=== PATIENT | female | born 1985 | race Caucasian/White ===

== ENCOUNTER 2020-10-04 19:24 | Inpatient (IN) | payer BC ==
[~2020-10-04 19:24] MED LIST: Iopamidol-370 76% 500 ML 1 ML ONE
[2020-10-04 20:28] LABS: Hemoglobin 11.9 g/dL (12.0-16.0); Mean Corpuscular HGB CONC 32.7 g/dL (32.0-36.0); Mean Corpuscular Hemoglobin 29.2 pg (27.0-31.0); Mean Corpuscular Volume 89.2 fL (78.0-98.0); Mean Platelet Volume 6.7 fL (7.4-10.4); Platelet Count 252 thou/uL (130-400); RBC Distribution Width 11.5 % (11.5-14.5); Red Blood Cell (RBC) Count 4.06 mill/uL (4.20-5.40)
[2020-10-04 20:47] LABS: ALT (SGPT) 10 U/L (8-55); AST (SGOT) 10 U/L (5-34); Albumin 3.7 g/dL (3.5-5.0); Alkaline Phosphatase 70 U/L (40-110); Anion Gap 14 mmol/L (10-20); BUN (Urea Nitrogen) 7 mg/dL (7.0-18.7); Bilirubin, Total 0.7 mg/dL (0.2-1.2); Calc. Creatinine Clearance 0 mL/min (70-130); Calcium 9.1 mg/dL (7.8-10.44); Carbon Dioxide 25 mmol/L (22-29); Chloride 101 mmol/L (98-107); Globulin 3.6 g/dL (2.4-3.5); Glucose 111 mg/dL (70-105); Potassium 3.7 mmol/L (3.5-5.1); Protein, Total 7.3 g/dL (6.0-8.3); Sodium 136 mmol/L (136-145)
[2020-10-04] MEDS ORDERED: Morphine 4 MG/ML VIAL ONE (20:49)
[2020-10-04] MEDS ORDERED: Ondansetron PF 4 MG/2 ML Vial ONE (20:49)
[2020-10-04 20:51] LABS: Band 26 % (5-11); Lymphocytes 8 % (21-51); MDiff Complete? YES; Monocytes 4 % (0-10); Neutrophil 62 % (42-75)
[2020-10-04] MEDS ORDERED: Cefepime 2 GM VIAL ONE (21:14)
[2020-10-04] MEDS ORDERED: HYDROmorphone 0.5 MG/0.5 ML SYRINGE ONE (21:14)
[2020-10-04] MEDS ORDERED: Vancomycin 1 GM/200 ML BAG ONE (23:07)
[2020-10-05 00:29] LABS: SARS-CoV-2 NAA Rapid Test Not Detected (NotDetected)
[2020-10-05] MEDS ORDERED: Ondansetron PF 4 MG/2 ML Vial IVP PRN (01:30)
[2020-10-05] MEDS ORDERED: Ondansetron ODT 4 MG TAB SL PRN (01:30)
[2020-10-05 01:47] VITALS: BMI 27.2
[2020-10-05] MEDS: Morphine 4 MG/ML VIAL SLOW IVP PRN ×3 (01:54→09:15)
[2020-10-05] MEDS: Acetaminophen 325 MG TAB PO PRN ×2 (01:57→05:34)
[2020-10-05] MEDS ORDERED: Zolpidem Tartrate 5 MG TAB PO SCH (02:45)
[2020-10-05 05:57] LABS: #Lymphocytes 1.5 thou/uL (1.20-3.40); #Monocytes 1.5 thou/uL (0.11-0.59); #Neutrophils 11.6 thou/uL (1.40-6.50); %Basophils 0.1 % (0.0-1.0); %Eosinophils 0.2 % (0.0-10.0); %Lymphocytes 10.3 % (21.0-51.0); %Monocytes 10.4 % (0.0-10.0); %Neutrophils 78.9 % (42.0-75.0); Hemoglobin 10.9 g/dL (12.0-16.0); Mean Corpuscular Hemoglobin 28.5 pg (27.0-31.0); Mean Corpuscular Volume 89.1 fL (78.0-98.0); Platelet Count 226 thou/uL (130-400); RBC Distribution Width 11.4 % (11.5-14.5); Red Blood Cell (RBC) Count 3.84 mill/uL (4.20-5.40); White Blood Cell (WBC) Count 14.6 thou/uL (4.8-10.8)
[2020-10-05 06:06] LABS: Anion Gap 13 mmol/L (10-20); BUN (Urea Nitrogen) 6 mg/dL (7.0-18.7); Calc. Creatinine Clearance 126 mL/min (70-130); Calcium 8.6 mg/dL (7.8-10.44); Carbon Dioxide 23 mmol/L (22-29); Chloride 99 mmol/L (98-107); Glucose 106 mg/dL (70-105); Potassium 3.6 mmol/L (3.5-5.1); Sodium 131 mmol/L (136-145)
[2020-10-05] MEDS: Vancomycin HCl 1.25 GM in Sodium Chloride 0.9% 250 ML 250 ML IVPB SCH ×2 (08:13→21:03)
[2020-10-05] MEDS ORDERED: HYDROcodone/Acetaminophen 5/325 mg Tablet PO PRN (10:57)
[2020-10-05] MEDS: HYDROcodone/Acetaminophen 5/325 mg Tablet PO PRN ×4 (11:19→23:55)
[2020-10-05] MEDS: traMADol HCl 50 MG TAB PO PRN (18:19)
[2020-10-05] MEDS: Senokot S 8.6-50 MG TAB PO SCH (20:05)
[2020-10-05] MEDS: Methocarbamol 500 MG TAB PO PRN (21:04)
[2020-10-05] MEDS: Ketorolac Tromethamine 30 MG/ML VIAL IVP PRN (23:55)
[2020-10-06] MEDS: HYDROcodone/Acetaminophen 5/325 mg Tablet PO PRN ×4 (05:53→21:00)
[2020-10-06] MEDS: Ketorolac Tromethamine 30 MG/ML VIAL IVP PRN ×3 (05:54→23:08)
[2020-10-06 06:21] LABS: #Eosinphils 0.1 thou/uL (0.0-0.7); #Lymphocytes 1.3 thou/uL (1.20-3.40); #Monocytes 0.9 thou/uL (0.11-0.59); %Basophils 0.3 % (0.0-1.0); %Eosinophils 1.4 % (0.0-10.0); %Lymphocytes 18.2 % (21.0-51.0); %Monocytes 12.7 % (0.0-10.0); %Neutrophils 67.5 % (42.0-75.0); Hemoglobin 10.3 g/dL (12.0-16.0); Mean Corpuscular HGB CONC 31.5 g/dL (32.0-36.0); Mean Corpuscular Volume 89.1 fL (78.0-98.0); Platelet Count 196 thou/uL (130-400); RBC Distribution Width 11.4 % (11.5-14.5); Red Blood Cell (RBC) Count 3.67 mill/uL (4.20-5.40); White Blood Cell (WBC) Count 7.3 thou/uL (4.8-10.8)
[2020-10-06 06:49] LABS: Anion Gap 13 mmol/L (10-20); Calc. Creatinine Clearance 142 mL/min (70-130); Calcium 8.5 mg/dL (7.8-10.44); Carbon Dioxide 25 mmol/L (22-29); Chloride 103 mmol/L (98-107); Glucose 103 mg/dL (70-105); Potassium 3.5 mmol/L (3.5-5.1); Sodium 137 mmol/L (136-145)
[2020-10-06 06:55] LABS: BUN (Urea Nitrogen) 11 mg/dL (7.0-18.7)
[2020-10-06 08:12] LABS: Vancomycin, Trough 8.6 ug/mL
[2020-10-06] MEDS: Enoxaparin Sodium 40 MG/0.4 ML SYRINGE SC SCH (08:39)
[2020-10-06] MEDS: Senokot S 8.6-50 MG TAB PO SCH ×2 (08:39→21:00)
[2020-10-06] MEDS: Methocarbamol 500 MG TAB PO PRN ×2 (08:40→18:33)
[2020-10-06] MEDS: Vancomycin HCl 1.25 GM in Sodium Chloride 0.9% 250 ML 250 ML IVPB SCH ×2 (09:07→21:00)
[2020-10-06] MEDS: traMADol HCl 50 MG TAB PO PRN ×2 (13:43→23:08)
[2020-10-06] MEDS: Zolpidem Tartrate 5 MG TAB PO PRN (21:00)
[2020-10-07] MEDS: HYDROcodone/Acetaminophen 5/325 mg Tablet PO PRN ×6 (00:35→23:29)
[2020-10-07] MEDS: Vancomycin HCl 1.25 GM in Sodium Chloride 0.9% 250 ML 250 ML IVPB SCH ×2 (08:04→20:21)
[2020-10-07] MEDS: Senokot S 8.6-50 MG TAB PO SCH ×2 (08:04→20:25)
[2020-10-07] MEDS: Enoxaparin Sodium 40 MG/0.4 ML SYRINGE SC SCH (08:04)
[2020-10-07] MEDS: traMADol HCl 50 MG TAB PO PRN ×3 (08:05→22:31)
[2020-10-07] MEDS ORDERED: Bisacodyl 10 MG SUPP PR PRN (11:56)
[2020-10-07] MEDS ORDERED: Lorazepam 0.5 MG TAB PO SCH (12:00)
[2020-10-07] MEDS ORDERED: Polyethylene Glycol 3350 17 GM Packet PO SCH (12:30)
[2020-10-07] MEDS: Polyethylene Glycol 3350 17 GM Packet PO SCH (13:07)
[2020-10-07] MEDS: Ketorolac Tromethamine 30 MG/ML VIAL IVP PRN ×2 (16:31→22:33)
[2020-10-07] MEDS ORDERED: Lorazepam 1 MG TAB PO PRN (16:42)
[2020-10-07] MEDS ORDERED: Mag-Al 1200 mg/1200 mg/30 ML UDCUP PO PRN (21:36)
[2020-10-08] MEDS: Ondansetron PF 4 MG/2 ML Vial IVP PRN ×3 (00:34→20:12)
[2020-10-08] MEDS: HYDROcodone/Acetaminophen 5/325 mg Tablet PO PRN ×4 (04:32→20:13)
[2020-10-08] MEDS: Ketorolac Tromethamine 30 MG/ML VIAL IVP PRN (04:40)
[2020-10-08 07:43] LABS: Vancomycin, Trough 11.9 ug/mL
[2020-10-08] MEDS ORDERED: Lorazepam 1 MG TAB PO PRN (09:07)
[2020-10-08] MEDS: Enoxaparin Sodium 40 MG/0.4 ML SYRINGE SC SCH (09:11)
[2020-10-08] MEDS: Senokot S 8.6-50 MG TAB PO SCH ×2 (09:11→20:14)
[2020-10-08] MEDS: Polyethylene Glycol 3350 17 GM Packet PO SCH (09:14)
[2020-10-08] MEDS: Vancomycin HCl 1.25 GM in Sodium Chloride 0.9% 250 ML 250 ML IVPB SCH (10:19)
[2020-10-08] MEDS ORDERED: HYDROcodone/Acetaminophen 5/325 mg Tablet PO PRN (18:13)
[2020-10-08] MEDS: Vancomycin HCl 1.5 GM in Sodium Chloride 0.9% 250 ML 300 ML IVPB SCH (21:00)
[2020-10-08] MEDS: traMADol HCl 50 MG TAB PO PRN (23:15)
[2020-10-08] MEDS: Zolpidem Tartrate 5 MG TAB PO PRN (23:19)
[2020-10-09] MEDS: HYDROcodone/Acetaminophen 5/325 mg Tablet PO PRN ×4 (04:06→23:05)
[2020-10-09] MEDS: Methocarbamol 500 MG TAB PO PRN ×2 (04:13→20:12)
[2020-10-09] MEDS ORDERED: Morphine 2 MG/ML VIAL SLOW IVP SCH (04:45)
[2020-10-09] MEDS: traMADol HCl 50 MG TAB PO PRN ×3 (05:06→21:33)
[2020-10-09] MEDS: Vancomycin HCl 1.5 GM in Sodium Chloride 0.9% 250 ML 300 ML IVPB SCH (09:33)
[2020-10-09] MEDS: Senokot S 8.6-50 MG TAB PO SCH ×2 (09:52→19:53)
[2020-10-09] MEDS: Enoxaparin Sodium 40 MG/0.4 ML SYRINGE SC SCH (09:54)
[2020-10-09] MEDS ORDERED: Doxycycline 100 MG CAP PO SCH ×2 (16:00→21:00)
[2020-10-09] MEDS ORDERED: Folic Acid 1 MG TAB PO SCH (16:15)
[2020-10-09] MEDS: Ketorolac Tromethamine 10 MG TAB PO SCH ×2 (17:04→23:05)
[2020-10-09] MEDS ORDERED: diphenhydrAMINE 25 MG CAP PO SCH (23:45)
[2020-10-10] MEDS: Ketorolac Tromethamine 10 MG TAB PO SCH ×2 (05:02→12:11)
[2020-10-10] MEDS: HYDROcodone/Acetaminophen 5/325 mg Tablet PO PRN ×2 (05:02→12:11)
[2020-10-10 05:06] LABS: Hemoglobin 10.4 g/dL (12.0-16.0); Mean Corpuscular HGB CONC 32.6 g/dL (32.0-36.0); Mean Corpuscular Hemoglobin 29.4 pg (27.0-31.0); Mean Corpuscular Volume 90.1 fL (78.0-98.0); Mean Platelet Volume 6.6 fL (7.4-10.4); Platelet Count 337 thou/uL (130-400); RBC Distribution Width 11.7 % (11.5-14.5); Red Blood Cell (RBC) Count 3.53 mill/uL (4.20-5.40); White Blood Cell (WBC) Count 6.9 thou/uL (4.8-10.8)
[2020-10-10 06:23] LABS: Thyroid Stimulating Hormone 3.4923 uIU/mL (0.35-4.94)
[2020-10-10] MEDS: Enoxaparin Sodium 40 MG/0.4 ML SYRINGE SC SCH (08:50)
[2020-10-10] MEDS: Polyethylene Glycol 3350 17 GM Packet PO SCH (08:51)
[2020-10-10] MEDS: Senokot S 8.6-50 MG TAB PO SCH (08:51)
[2020-10-10] MEDS ORDERED: Doxycycline 100 MG CAP PO SCH (09:00)
[2020-10-10] MEDS ORDERED: Folic Acid 1 MG TAB PO SCH (09:00)
[2020-10-10 11:55] VITALS: BP 125/85; TEMP 97.9
[2020-10-10] MEDS: traMADol HCl 50 MG TAB PO PRN (14:56)
== END 2020-10-10 15:10 | disposition home or self-care (01) | DRG 872 ==
LOC: ERS 19:24 → SJJU 22:40
PROVIDERS: ADMIT Internal Medicine; ATTEND Internal Medicine
DX: A41.9 Sepsis, unspecified organism (principal); L03.115 Cellulitis of right lower limb; M65.861 Other synovitis and tenosynovitis, right lower leg; Z20.822 Contact with and (suspected) exposure to COVID-19; S93.491A Sprain of other ligament of right ankle, initial encounter; M32.9 Systemic lupus erythematosus, unspecified; F90.9 Attention-deficit hyperactivity disorder, unspecified type; W18.30XA Fall on same level, unspecified, initial encounter; D64.9 Anemia, unspecified; Z88.3 Allergy status to other anti-infective agents; Z88.0 Allergy status to penicillin; Z91.018 Allergy to other foods; Z79.899 Other long term (current) drug therapy; Z90.49 Acquired absence of other specified parts of digestive tract; Z90.89 Acquired absence of other organs; Z82.69 Family history of other diseases of the musculoskeletal system and connective tissue; Z82.61 Family history of arthritis
CPT/HCPCS: 0240U; 36415; 80048; 80053; 80202; 82607; 82746; 83605; 84443; 85025; 85027; 87040; 96365; 96366; 96367; 96375; J0692; J1170; J1650; J1885; J2270; J2405; J3370; J7050; Q0163; Q9967

== ENCOUNTER 2021-03-08 10:21 | Observation (INO) | payer BC ==
[2021-03-08] MEDS ORDERED: Levofloxacin 500 mg/D5W 100 ml Premix Bag ONE (10:52)
[2021-03-08] MEDS ORDERED: Midazolam HCl 2 mg/2 ml Vial ONE (11:10)
[2021-03-08] MEDS ORDERED: Iothalamate Meglumine 60% 50 ML VIAL FS ONE (11:30)
[2021-03-08] MEDS ORDERED: PROPOFOL 200 MG/20 ML VIAL ONE (11:48)
[2021-03-08] MEDS ORDERED: Ondansetron PF 4 MG/2 ML Vial ONE (11:48)
[2021-03-08] MEDS ORDERED: Lidocaine 1% PF 5 ML VIAL ONE (11:48)
[2021-03-08] MEDS ORDERED: Dexamethasone 20 MG/5 ML VIAL ONE (11:48)
[2021-03-08] MEDS ORDERED: Fentanyl 100 MCG/2 ML VIAL ONE ×3 (11:50→14:38)
[2021-03-08] MEDS ORDERED: Phenazopyridine HCl 100 MG TAB ONE (12:49)
[2021-03-08] MEDS ORDERED: Ketorolac Tromethamine 30 MG/ML VIAL ONE (12:49)
[2021-03-08] MEDS ORDERED: Oxybutynin 5 MG TAB ONE (12:50)
[2021-03-08] MEDS ORDERED: diphenhydrAMINE 25 MG CAP PO PRN (14:39)
[2021-03-08] MEDS ORDERED: Zolpidem Tartrate 5 MG TAB PO PRN (14:39)
[2021-03-08] MEDS: HYDROcodone/Acetaminophen 5/325 mg Tablet PO PRN ×2 (15:35→23:22)
[2021-03-08 16:08] VITALS: BMI 35.2
[2021-03-08] MEDS: Acetaminophen 500 MG TAB PO PRN (18:18)
[2021-03-08] MEDS: Hyoscyamine Sulfate SL 0.125 mg Tablet SL SCH ×2 (19:54→23:23)
[2021-03-08] MEDS: Ibuprofen 600 MG TAB PO SCH (21:00)
[2021-03-09] MEDS: Acetaminophen 500 MG TAB PO PRN (03:46)
[2021-03-09] MEDS: Hyoscyamine Sulfate SL 0.125 mg Tablet SL SCH (05:45)
[2021-03-09] MEDS: Ibuprofen 600 MG TAB PO SCH (05:45)
[2021-03-09 07:59] VITALS: BP 141/79; TEMP 98.7
[2021-03-09] MEDS: HYDROcodone/Acetaminophen 5/325 mg Tablet PO PRN (08:31)
[2021-03-09] MEDS ORDERED: Tamsulosin HCl 0.4 MG CAP PO SCH (09:00)
[2021-03-09] MEDS ORDERED: FLU VACC QS2021-22(65YR UP)/PF 240 MCG/0.7 ML SYRINGE IM ONE (16:15)
== END 2021-03-09 10:57 | disposition home or self-care (01) ==
LOC: SDC 10:21 → ONC 14:25
PROVIDERS: ADMIT Urology; ATTEND Urology
PROC: 0TC68ZZ Extirpation of Matter from Right Ureter, Via Natural or Artificial Opening Endoscopic (ICD-10-PCS; principal; 2021-03-08)
PROC: 0T768DZ Dilation of Right Ureter with Intraluminal Device, Via Natural or Artificial Opening Endoscopic (ICD-10-PCS; 2021-03-08)
DX: N13.2 Hydronephrosis with renal and ureteral calculous obstruction (principal); Z79.899 Other long term (current) drug therapy; Z79.2 Long term (current) use of antibiotics; Z88.0 Allergy status to penicillin; Z88.8 Allergy status to other drugs, medicaments and biological substances; Z91.018 Allergy to other foods; Z98.84 Bariatric surgery status
CPT/HCPCS: 74420; 82365; 88300; C2617; G0378; J1100; J1885; J1956; J2250; J2405; J2704; J3010; Q9961-U8